=== PATIENT | female | born 1965 | race Asian ===

== ENCOUNTER 2018-04-14 11:59 | Day surgery (SDC) | payer OTHER ==
[2018-04-14] MEDS ORDERED: MIDAZOLAM 1 MG/ML 2 ML INJ ×2 (15:28)
[2018-04-14] MEDS ORDERED: FENTAnyl 50 MCG/ML VIAL (15:28)
== END 2018-04-14 15:58 | disposition home or self-care (01) ==
LOC: GIL 11:59
DX: Z12.11 Encounter for screening for malignant neoplasm of colon (principal); K29.30 Chronic superficial gastritis without bleeding; D12.6 Benign neoplasm of colon, unspecified; E78.00 Pure hypercholesterolemia, unspecified
CPT/HCPCS: 43239; 88305; 88312; 88313